=== PATIENT | female | born 1965 | race Hispanic/Latino ===

== ENCOUNTER 2021-03-19 17:10 | Inpatient (IN) | payer BC ==
[~2021-03-19] VITALS: Ht 165.1 cm; Wt 100.7 kg
[2021-03-19] MEDS ORDERED: DICYCLOMINE HCL 20 MG/2 ML VIAL IM ONE (18:30)
[2021-03-19 19:03] LABS: BASOPHILS % 0.4 % (0.0-1.0); EOSINOPHILS # (AUTO) 0.1 (0.0-0.4); EOSINOPHILS % 1.5 % (0.0-6.0); HEMATOCRIT 43.9 % (34.2-44.1); HEMOGLOBIN 13.5 g/dL (12.0-16.0); LYMPHOCYTES # (AUTO) 1.6 (1.0-3.2); LYMPHOCYTES % 20.7 % (18.0-39.1); MEAN CORPUSCULAR HEMOGLOBIN 26.7 pg (28-32); MEAN CORPUSCULAR HGB CONC 30.8 g/dL (31-35); MEAN CORPUSCULAR VOLUME 86.9 fL (81-99); MONOCYTES # (AUTO) 0.4 (0.2-0.8); MONOCYTES % 4.9 % (4.4-11.3); NEUTROPHILS # (AUTO) 5.4 (2.1-6.9); NEUTROPHILS % 72.2 % (38.7-80.0); PLATELET COUNT 217 x10e3/uL (140-360); RED BLOOD COUNT 5.05 x10e6/uL (3.6-5.1); RED CELL DISTRIBUTION WIDTH 14.7 % (11.7-14.4)
[2021-03-19 19:20] LABS: AMYLASE 24 U/L (25-125); LIPASE 38 U/L (8-78)
[2021-03-19 19:21] LABS: ALBUMIN/GLOBULIN RATIO 1.1 (0.8-2.0); ANION GAP 13.8 mmol/L (8-16); CREATININE, SERUM 0.7 mg/dL (0.57-1.11); POTASSIUM 3.8 mmol/L (3.5-5.1)
[2021-03-19] MEDS ORDERED: MORPHINE SULFATE INJ 4 MG/ML INJ 1ML IV STA (21:23)
[2021-03-19] MEDS ORDERED: ONDANSETRON HCL INJ 2MG/ML 2ML 2 MG/ML VIAL IV STA (21:23)
[2021-03-19] MEDS: CEFTRIAXONE 1 GM in SODIUM CHLORIDE 0.9% 50ML 50 ML IV SCH (22:04)
[2021-03-20] MEDS ORDERED: IOPAMIDOL 370 MG/ML 200 ML INFUS..BTL INJ ONE (00:17)
[2021-03-20] MEDS ORDERED: SODIUM CHLORIDE 0.9% 50ML 50 ML ONE (00:17)
[2021-03-20] MEDS: SODIUM CHLORIDE 0.9% 1000ML 1,000 ML IV SCH ×4 (00:19→21:54)
[2021-03-20] MEDS: MORPHINE SULFATE INJ 4 MG/ML INJ 1ML IV PRN ×4 (04:22→22:41)
[2021-03-20 05:54] LABS: BASOPHILS % 0.6 % (0.0-1.0); EOSINOPHILS # (AUTO) 0.1 (0.0-0.4); EOSINOPHILS % 1.9 % (0.0-6.0); HEMATOCRIT 39.5 % (34.2-44.1); HEMOGLOBIN 12.1 g/dL (12.0-16.0); LYMPHOCYTES # (AUTO) 1.4 (1.0-3.2); LYMPHOCYTES % 26.4 % (18.0-39.1); MEAN CORPUSCULAR HEMOGLOBIN 26.8 pg (28-32); MEAN CORPUSCULAR HGB CONC 30.6 g/dL (31-35); MEAN CORPUSCULAR VOLUME 87.4 fL (81-99); MONOCYTES # (AUTO) 0.4 (0.2-0.8); MONOCYTES % 7.8 % (4.4-11.3); NEUTROPHILS # (AUTO) 3.4 (2.1-6.9); NEUTROPHILS % 62.9 % (38.7-80.0); PLATELET COUNT 169 x10e3/uL (140-360); RED BLOOD COUNT 4.52 x10e6/uL (3.6-5.1); RED CELL DISTRIBUTION WIDTH 14.6 % (11.7-14.4)
[2021-03-20 06:12] LABS: ALBUMIN 3.4 g/dL (3.5-5.0); ALBUMIN/GLOBULIN RATIO 1.2 (0.8-2.0); CREATININE, SERUM 0.6 mg/dL (0.57-1.11)
[2021-03-20] MEDS ORDERED: BYSTOLIC10 MG PO (11:18)
[2021-03-20] MEDS ORDERED: ATORVASTATIN CA20 MG PO (11:18)
[2021-03-20 11:49] VITALS: BP 170/93
[2021-03-20 11:54] VITALS: BP 170/93
[2021-03-20 15:50] VITALS: BP 132/87
[2021-03-20] MEDS: ONDANSETRON HCL INJ 2MG/ML 2ML 2 MG/ML VIAL IV PRN ×2 (17:53→22:40)
[2021-03-20 20:00] VITALS: BP 131/85
[2021-03-20] MEDS: CEFTRIAXONE 1 GM in SODIUM CHLORIDE 0.9% 50ML 50 ML IV SCH (21:43)
[2021-03-21] VITALS (8 sets, daily range): BP systolic 120–163; BP diastolic 71–90
[2021-03-21] MEDS: MORPHINE SULFATE INJ 4 MG/ML INJ 1ML IV PRN ×5 (03:40→23:30)
[2021-03-21] MEDS: ONDANSETRON HCL INJ 2MG/ML 2ML 2 MG/ML VIAL IV PRN ×3 (03:40→14:23)
[2021-03-21] MEDS: SODIUM CHLORIDE 0.9% 1000ML 1,000 ML IV SCH ×3 (05:52→23:42)
[2021-03-21] MEDS: PREGABALIN 50 MG CAP PO SCH ×3 (09:00→21:11)
[2021-03-21] MEDS: DOCUSATE SODIUM 100 MG CAP PO SCH (18:29)
[2021-03-21] MEDS: CEFTRIAXONE 1 GM in SODIUM CHLORIDE 0.9% 50ML 50 ML IV SCH (21:12)
[2021-03-22] VITALS (8 sets, daily range): BP systolic 124–163; BP diastolic 64–88
[2021-03-22] MEDS: MORPHINE SULFATE INJ 4 MG/ML INJ 1ML IV PRN ×2 (04:15→08:52)
[2021-03-22] MEDS: SODIUM CHLORIDE 0.9% 1000ML 1,000 ML IV SCH ×2 (06:37→07:24)
[2021-03-22] MEDS: ONDANSETRON HCL INJ 2MG/ML 2ML 2 MG/ML VIAL IV PRN (08:52)
[2021-03-22] MEDS: PREGABALIN 50 MG CAP PO SCH ×3 (09:00→20:33)
[2021-03-22] MEDS: DOCUSATE SODIUM 100 MG CAP PO SCH ×2 (09:00→17:07)
[2021-03-22] MEDS ORDERED: BUPIVACAINE HCL 0.5% INJ 30 ML VIAL INJ ONE (12:45)
[2021-03-22] MEDS ORDERED: ONDANSETRON HCL INJ 2MG/ML 2ML 2 MG/ML VIAL ONE (13:06)
[2021-03-22] MEDS ORDERED: SEVOFLURANE INHAL SOLN 250 ML PEN BTL ONE (13:06)
[2021-03-22] MEDS ORDERED: PROPOFOL IV EMULSION 10 MG/ML 20 ML VIAL ONE (13:06)
[2021-03-22] MEDS ORDERED: ATROPINE SULFATE 1 MG/ML VIAL ONE (13:06)
[2021-03-22] MEDS ORDERED: NEOSTIGMINE 1 MG/ML 10ML VIAL ONE (13:06)
[2021-03-22] MEDS ORDERED: KETOROLAC TROMETHAMINE 30 MG/ML VIAL ONE (13:06)
[2021-03-22] MEDS ORDERED: POVIDONE IODINE 0.05% 0.05 % ML PO ONE (13:06)
[2021-03-22] MEDS ORDERED: DEXAMETHASONE SOD PHOS INJ 4 MG/ML VIAL ONE (13:06)
[2021-03-22] MEDS ORDERED: ROCURONIUM BROMIDE 10 MG/ML 5ML VIAL IV ONE (13:06)
[2021-03-22] MEDS ORDERED: ONDANSETRON HCL INJ 2MG/ML 2ML 2 MG/ML VIAL IV PRN (13:15)
[2021-03-22] MEDS ORDERED: SODIUM CHLORIDE 0.9% 1000ML 1,000 ML IV SCH (13:15)
[2021-03-22] MEDS ORDERED: SUGAMMADEX SODIUM 200 MG/2 ML VIAL IV ONE (13:15)
[2021-03-22] MEDS ORDERED: FENTANYL CITRATE/PF 100MCG/2 ML INJ ONE (13:51)
[2021-03-22] MEDS: HYDROCODONE/APAP 5MG-325MG TAB PO PRN ×2 (17:18→21:16)
[2021-03-22] MEDS: CEFTRIAXONE 1 GM in SODIUM CHLORIDE 0.9% 50ML 50 ML IV SCH (20:33)
[2021-03-22] MEDS ORDERED: ATORVASTATIN 20 MG TAB PO SCH (21:00)
[2021-03-23 00:13] VITALS: BP 128/70
[2021-03-23] MEDS: HYDROCODONE/APAP 5MG-325MG TAB PO PRN (03:15)
[2021-03-23 04:33] VITALS: BP 116/72
[2021-03-23 08:26] VITALS: BP 116/72
[2021-03-23 08:49] VITALS: BP 127/68
[2021-03-23] MEDS ORDERED: NEBIVOLOL 10 MG TAB PO SCH (09:00)
[2021-03-23] MEDS ORDERED: ULTRACET TABLE1 EACH PO (09:10)
== END 2021-03-23 10:39 | disposition home or self-care (01) | DRG 418 ==
LOC: ER 18:23 → ERHOLD 21:44 → MED/SURG 03-20 11:27 → OBSVTOIN 03-21 10:33
PROVIDERS: ADMIT Family Medicine; ATTEND Family Medicine
PROC: 0FT44ZZ Resection of Gallbladder, Percutaneous Endoscopic Approach (ICD-10-PCS; principal; 2021-03-22 12:40)
DX: K81.2 Acute cholecystitis with chronic cholecystitis (principal); B02.29 Other postherpetic nervous system involvement; I10 Essential (primary) hypertension; E78.5 Hyperlipidemia, unspecified; Z20.822 Contact with and (suspected) exposure to COVID-19; K76.0 Fatty (change of) liver, not elsewhere classified; E66.9 Obesity, unspecified; Z68.36 Body mass index [BMI] 36.0-36.9, adult
CPT/HCPCS: 36415; 74177; 76705; 78227; 80053; 82150; 83690; 85025; 88304; 99284; A9537; G0378; J0461; J0500; J0696; J1100; J1885; J2270; J2405; J2710; J3010; J7030; Q9967; U0002